=== PATIENT | male | born 2000 | race Two or more races ===

== ENCOUNTER 2024-03-03 16:24 | Emergency (ER) | payer OTHER ==
[~2024-03-03] VITALS: Ht 180.3 cm; Wt 97.5 kg
[2024-03-03] MEDS ORDERED: CLINDAMYCIN PHOSPHATE 150 MG/ML (300mg) IM STA (17:14)
[2024-03-03] MEDS ORDERED: CLINDAMYCIN PHOSPHATE 150 MG/ML (300mg) ONE (17:57)
== END 2024-03-03 18:35 | disposition home or self-care (01) ==
LOC: ER 16:26
DX: S61.412A Laceration without foreign body of left hand, initial encounter (principal); X58.XXXA Exposure to other specified factors, initial encounter; Y93.89 Activity, other specified; Y92.69 Other specified industrial and construction area as the place of occurrence of the external cause; Y99.8 Other external cause status; Z88.0 Allergy status to penicillin; Z88.2 Allergy status to sulfonamides; Z88.6 Allergy status to analgesic agent